=== PATIENT | male | born 1985 | race Caucasian/White ===

== ENCOUNTER 2024-11-25 15:56 | Emergency (ER) | payer OTHER | END 2024-11-25 17:18 | disposition home or self-care (01) | LOC: VM.ED 15:56 → MERGE 15:56 → VM.ED 17:18 | DX: S61.211A Laceration without foreign body of left index finger without damage to nail, initial encounter (principal); Z28.21 Immunization not carried out because of patient refusal; W22.8XXA Striking against or struck by other objects, initial encounter | CPT/HCPCS: 12002; 73140-F1; 99283; A9270-GY; J2003 ==